=== PATIENT | male | born 1985 | race Caucasian/White ===

== ENCOUNTER 2019-10-15 20:32 | Emergency (ER) | payer BC ==
[~2019-10-15] VITALS: Ht 182 cm; Wt 86.0 kg
--- NOTE | 2019-10-15 20:43 | ED General ---
General Stated Complaint: TIGHTNESS IN ARM, SOB Source of Information: Patient Exam Limitations: No Limitations History of Present Illness Date Seen by Provider: Oct 15, 2019 Time Seen by Provider: 20:41 Initial Comments To ER with reports of feeling very anxious. This began tonight while he was at school walking around, he began to feel short of breath, tightness in his chest and tightness in his left arm. This has improved quite a bit from its peak was still unpleasant and tight. He does still feel anxious but better. History of panic attacks only a handful over the past 10 years but over the course of the past few months he's had 5 or 6. Nonsmoker, not diabetic and otherwise healthy. Denies drug or alcohol use. He thought simply coming to the emergency room with help him relax Timing/Duration: 1/2 Hour Severity: Moderate Allergies and Home Medications Allergies Coded Allergies: No Known Drug Allergies (Unverified , 10/15/19) Home Medications Alprazolam 0.5 Mg Tablet, 0.5 MG PO BID PRN for ANXIETY Prescribed by: ASHISH MICHEL on 10/15/192124 Patient Home Medication List Home Medication List Reviewed: Yes Review of Systems Review of Systems Constitutional: see HPI EENTM: see HPI Respiratory: see HPI, short of breath Cardiovascular: see HPI, chest pain Genitourinary: no symptoms reported Musculoskeletal: no symptoms reported Skin: no symptoms reported Psychiatric/Neurological: See HPI, Anxiety Hematologic/Lymphatic: No Symptoms Reported Immunological/Allergic: no symptoms reported Past Poqbvld-Hiikyd-Ecosnx Hx Patient Social History Recent Foreign Travel: No Contact w/Someone Who Travel: No Physical Exam Vital Signs Vital Signs - First Documented 10/15/19 10/15/19 20:40 20:55 Pulse 86 Resp 22 B/P (MAP) 146/98 (114) Pulse Ox 100 O2 Delivery Room Air Capillary Refill : Height, Weight, BMI Height: '" Weight: lbs. oz. kg; BMI Method: General Appearance: No Apparent Distress, WD/WN, Anxious Eyes: Bilateral Eye Normal Inspection, Bilateral Eye PERRL, Bilateral Eye EOMI Neck: Full Range of Motion, Normal Inspection Respiratory: Lungs Clear, Normal Breath Sounds, No Accessory Muscle Use, No Respiratory Distress Cardiovascular: Regular Rate, Rhythm, Normal Peripheral Pulses Gastrointestinal: Normal Bowel Sounds, Non Tender, Soft Extremity: Normal Capillary Refill, Normal Inspection Neurologic/Psychiatric: Alert, Oriented x3 Skin: Normal Color, Warm/Dry Progress/Results/Core Measures Suspected Sepsis SIRS Temperature: Pulse: Respiratory Rate: Laboratory Tests 10/15/19 20:40: White Blood Count 4.3 Blood Pressure / Mean: Laboratory Tests 10/15/19 20:40: Creatinine 1.07, INR Comment 0.9, Platelet Count 257, Total Bilirubin 0.4 Results/Orders Lab Results Laboratory Tests Test 10/15/19 20:40 Range/Units White Blood Count 4.3 4.3-11.0 10^3/uL Red Blood Count 5.35 4.35-5.85 10^6/uL Hemoglobin 15.1 13.3-17.7 G/DL Hematocrit 44 40-54 % Mean Corpuscular Volume 82 80-99 FL Mean Corpuscular Hemoglobin 28 25-34 PG Mean Corpuscular Hemoglobin Concent 34 32-36 G/DL Red Cell Distribution Width 12.8 10.0-14.5 % Platelet Count 257 130-400 10^3/uL Mean Platelet Volume 9.8 7.4-10.4 FL Neutrophils (%) (Auto) 53 42-75 % Lymphocytes (%) (Auto) 32 12-44 % Monocytes (%) (Auto) 12 0-12 % Eosinophils (%) (Auto) 3 0-10 % Basophils (%) (Auto) 0 0-10 % Neutrophils # (Auto) 2.3 1.8-7.8 X 10^3 Lymphocytes # (Auto) 1.4 1.0-4.0 X 10^3 Monocytes # (Auto) 0.5 0.0-1.0 X 10^3 Eosinophils # (Auto) 0.1 0.0-0.3 10^3/uL Basophils # (Auto) 0.0 0.0-0.1 10^3/uL Prothrombin Time 12.7 12.2-14.7 SEC INR Comment 0.9 0.8-1.4 Activated Partial Thromboplast Time 27 24-35 SEC D-Dimer < 0.20 0.00-0.49 UG/ML Sodium Level 139 135-145 MMOL/L Potassium Level 3.4 L 3.6-5.0 MMOL/L Chloride Level 100 98-107 MMOL/L Carbon Dioxide Level 24 21-32 MMOL/L Anion Gap 15 H 5-14 MMOL/L Blood Urea Nitrogen 13 7-18 MG/DL Creatinine 1.07 0.60-1.30 MG/DL Estimat Glomerular Filtration Rate > 60 BUN/Creatinine Ratio 12 Glucose Level 100 70-105 MG/DL Calcium Level 10.1 8.5-10.1 MG/DL Corrected Calcium 8.5-10.1 MG/DL Magnesium Level 1.8 1.6-2.4 MG/DL Total Bilirubin 0.4 0.1-1.0 MG/DL Aspartate Amino Transf (AST/SGOT) 24 5-34 U/L Alanine Aminotransferase (ALT/SGPT) 20 0-55 U/L Alkaline Phosphatase 66 40-136 U/L Myoglobin 75.3 10.0-92.0 NG/ML Troponin I < 0.028 <0.028 NG/ML B-Type Natriuretic Peptide 15.8 <100.0 PG/ML Total Protein 7.7 6.4-8.2 GM/DL Albumin 5.0 H 3.2-4.5 GM/DL Lipase 30 8-78 U/L My Orders Orders - ASHISH MICHEL [employer]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 Cbc With Automated Diff (10/15/19 20:39) Magnesium (10/15/19 20:39) Chest 1 View, Ap/Pa Only (10/15/19 20:39) Ekg Tracing (10/15/19 20:39) Cardiac Profile 1 (10/15/19 20:39) Comprehensive Metabolic Panel (10/15/19 20:39) Myoglobin Serum (10/15/19 20:39) Protime With Inr (10/15/19 20:39) Partial Thromboplastin Time (10/15/19 20:39) O2 (10/15/19 20:39) Monitor-Rhythm Ecg Trace Only (10/15/19 20:39) Ed Iv/Invasive Line Start (10/15/19 20:39) Lipase (10/15/19 20:39) BNP (10/15/19 20:39) Fibrin Degradation Products (10/15/19 20:39) Alprazolam Tablet (Xanax Tablet) (10/15/19 20:45) Rx-Albuterol Inhaler (Rx-Proair) (10/15/19 21:05) Medications Given in ED Current Medications Medications Dose Ordered Sig/Evelin Route Start Time Stop Time Status Last Admin Dose Admin Alprazolam 0.25 mg ONCE ONCE PO 10/15/19 20:45 10/15/19 20:46 DC 10/15/19 20:47 0.25 MG Vital Signs/I&O 10/15/19 10/15/19 10/15/19 20:40 20:55 21:46 Pulse 86 80 Resp 22 16 B/P (MAP) 146/98 (114) 130/93 Pulse Ox 100 100 99 O2 Delivery Room Air Room Air Room Air Capillary Refill : Departure Communication (Admissions) Patient stated to RN that he has used an inhaler in the past which has helped with tightness in the chest. He is not wheezing or in respiratory distress. It's worth a try. He's also been on Zyrtec D which contains Sudafed which could be contributing to the increase in his anxiety symptoms. Impression Primary Impression: Anxiety Additional Impression: Chest tightness Disposition: HOME, SELF-CARE Condition: Stable Departure-Patient Inst. Decision time for Depature: 21:23 Patient Instructions: Anxiety, Adult (DC) Add. Discharge Instructions: 1. Return to ER for any concerns 2. Follow-up with your doctor next week 3. Use the anxiety medication on an as-needed basis up to twice a day as needed if you feel anxious. If you need to use this more than 2-3 days per week then you need to follow up with primary care to discuss starting a daily medication to prevent panic attacks and anxiety. Scripts Alprazolam (Xanax) 0.5 Mg Tablet 0.5 MG PO BID PRN for ANXIETY, #10 TAB Prov: ASHISH MICHEL APRN 10/15/19 Copy Copies To 1: JADA BRADLEY MD, PETER J APRN Oct 15, 2019 20:43 POS
[2019-10-15] MEDS ORDERED: ALPRAZolam 0.25 MG (XANAX) TAB PO ONE (20:45)
[2019-10-15 20:48] LABS: BASOPHILS % (AUTO) 0 % (0-10); EOSINOPHILS # (AUTO) 0.1 10^3/uL (0.0-0.3); EOSINOPHILS % (AUTO) 3 % (0-10); HEMATOCRIT 44 % (40-54); HEMOGLOBIN 15.1 G/DL (13.3-17.7); LYMPHOCYTES # (AUTO) 1.4 X 10^3 (1.0-4.0); LYMPHOCYTES % (AUTO) 32 % (12-44); MEAN CORPUSCULAR HEMOGLOBIN 28 PG (25-34); MEAN CORPUSCULAR HGB CONC 34 G/DL (32-36); MEAN CORPUSCULAR VOLUME 82 FL (80-99); MEAN PLATELET VOLUME 9.8 FL (7.4-10.4); MONOCYTES # (AUTO) 0.5 X 10^3 (0.0-1.0); MONOCYTES % (AUTO) 12 % (0-12); NEUTROPHILS # (AUTO) 2.3 X 10^3 (1.8-7.8); NEUTROPHILS % (AUTO) 53 % (42-75); PLATELET COUNT 257 10^3/uL (130-400); RED CELL DISTRIBUTION WIDTH 12.8 % (10.0-14.5); WHITE BLOOD COUNT 4.3 10^3/uL (4.3-11.0)
[2019-10-15 21:02] LABS: INR 0.9 (0.8-1.4); PROTHROMBIN TIME PATIENT 12.7 SEC (12.2-14.7)
[2019-10-15] MEDS ORDERED: RX-ALBUTEROL INHALER (PROAIR) 8.5 GM IH STA (21:05)
--- NOTE | 2019-10-15 21:07 | Diagnostic Imaging Report ---
EXAMINATION: Portable erect AP chest at 8:55 PM INDICATION: Chest tightness There are no prior studies available for comparison. The heart size is within normal limits. The lungs are clear. There is no evidence for failure, pneumonia or for a pleural effusion. The mediastinum is not widened. The osseous structures are intact. External cardiac monitoring electrodes are noted. IMPRESSION: There is no evidence for an acute an cardiopulmonary abnormality. Dictated by: Dictated on workstation # [id number]
[2019-10-15 21:11] LABS: ALANINE AMINOTRANSFERASE 20 U/L (0-55); ALKALINE PHOSPHATASE 66 U/L (40-136); BILIRUBIN,TOTAL 0.4 MG/DL (0.1-1.0); BUN/CREATININE RATIO 12; CALCIUM 10.1 MG/DL (8.5-10.1); CARBON DIOXIDE 24 MMOL/L (21-32); CHLORIDE 100 MMOL/L (98-107); CREATININE SERUM 1.07 MG/DL (0.60-1.30); GFR ESTIMATED > 60; GLUCOSE 100 MG/DL (70-105); LIPASE 30 U/L (8-78); MAGNESIUM 1.8 MG/DL (1.6-2.4); POTASSIUM 3.4 MMOL/L (3.6-5.0); SODIUM 139 MMOL/L (135-145); TOTAL PROTEIN 7.7 GM/DL (6.4-8.2)
[2019-10-15] MEDS ORDERED: ALPR0.5T PO (21:25)
[2019-10-15 21:46] VITALS: BP 130/93
== END 2019-10-15 21:44 | disposition home or self-care (01) ==
LOC: EDUNIT# 20:32 → ER 20:33
DX: F41.9 Anxiety disorder, unspecified (principal); R07.89 Other chest pain
CPT/HCPCS: 36415; 71045; 80053; 83690; 83735; 83874; 83880; 84484; 85025; 85379; 85610; 85730; 93005; 93041